=== PATIENT | female | born 1940 | race Caucasian/White ===

== ENCOUNTER → 2018-03-15 | Outpatient (CLI) | payer MEDICARE, MEDICAID ==
[~2018-03-15] MED LIST: BACTRIM-DS1 EA ORAL; BENICAR5 MG ORAL; BENTYL10 MG ORAL; TAMIFLU75 MG ORAL
--- NOTE | 2018-03-15 16:53 | Diagnostic Imaging Report ---
Indication: Abdominal pain. Persists. Technique: US ABD limited Comparison: 07/06/2010; CT abdomen 03/19/2016 Findings: Please note that patient requested limited evaluation as she could not tolerate the pressure of the probe. Imaged portions of the pancreatic head grossly unremarkable. The body and tail are not seen. Liver contour appears smooth. Hepatic echogenicity appears within normal limits and homogeneous. Imaged hepatic veins appear patent. Liver is normal in size. Partially visualized is grossly unremarkable. In the inferior right hepatic lobe there is a 1.8 x 2.2 x 2.1 cm well-circumscribed anechoic structure consistent with the cyst noted in this region on prior CT. No additional hepatic lesion is identified. Abdominal aorta is normal in caliber with some scattered atherosclerotic calcifications. IMPRESSION: Limited abdominal ultrasound as patient could not tolerate probe pressure. Only images of the liver, aorta and pancreatic head were obtained. * Simple appearing cyst in the inferior right hepatic lobe measuring up to 2.6 cm in diameter. This corresponds with the cyst noted in this region on prior CT. * Atherosclerotic disease noted in the aorta. Visualized portions of the abdominal aorta normal in caliber.
== END | disposition home or self-care (01) ==
LOC: ULS 09:29
PROVIDERS: ATTEND Internal Medicine
DX: K76.89 Other specified diseases of liver (principal); I70.0 Atherosclerosis of aorta
CPT/HCPCS: 76705

== ENCOUNTER 2018-10-01 17:42 | Emergency (ER) | payer MEDICARE, MEDICAID ==
[~2018-10-01] VITALS: Ht 157.5 cm; Wt 53.5 kg
[2018-10-01] MEDS ORDERED: NKM (17:50)
--- NOTE | 2018-10-01 17:59 | NUR ---
ED Nurse Note: Pt came into the ER w/ complaints of vaginal bleeding x 2 days. Denies any pain. A + O x4 Ambulatory. Skin warm to touch.
--- NOTE | 2018-10-01 18:11 | NUR ---
ED Nurse Note: Collected blood and urine. Pt does not want IV site. Pt states that she can be poked again if need be.
[2018-10-01 18:12] VITALS: BP 192/94
--- NOTE | 2018-10-01 18:15 | NUR ---
ED Nurse Note: Tried calling US. No response. Will try again later.
[2018-10-01 18:23] LABS: BASOPHILS % (AUTO) 0.9 % (0.0-2.0); EOSINOPHILS % (AUTO) 0.7 % (0.0-3.0); HEMATOCRIT 33.7 % (37.0-47.0); LYMPHOCYTES % (AUTO) 30.9 % (20.0-45.0); MEAN CORPUSCULAR VOLUME 87 FL (80-99); MONOCYTES % (AUTO) 10.5 % (1.0-10.0); NEUTROPHILS % (AUTO) 56.9 % (45.0-75.0); PLATELET COUNT 225 K/UL (150-450); RED BLOOD COUNT 3.89 M/UL (4.20-5.40); RED CELL DISTRIBUTION WIDTH 13.6 % (11.6-14.8); WHITE BLOOD COUNT 9.8 K/UL (4.8-10.8)
[2018-10-01 18:24] LABS: APPEARANCE,URINE CLEAR; BILIRUBIN, URINE NEGATIVE (NEGATIVE); COLOR,URINE PALE YELLOW; GLUCOSE, URINE (UA) NEGATIVE (NEGATIVE); KETONES,URINE NEGATIVE (NEGATIVE); LEUKOCYTE ESTERASE ,URINE 1+ (NEGATIVE); NITRITE,URINE NEGATIVE (NEGATIVE); PH,URINE 8 (4.5-8.0); PROTEIN,URINE NEGATIVE (NEGATIVE); UROBILINOGEN,URINE NORMAL MG/DL (0.0-1.0)
[2018-10-01 18:29] LABS: INR 0.9 (0.9-1.1)
[2018-10-01 18:34] LABS: ANION GAP 9 mmol/L (5-15); BLOOD UREA NITROGEN 13 mg/dL (7-18); CALCIUM 9.2 MG/DL (8.5-10.1); CARBON DIOXIDE 23 MMOL/L (21-32); CHLORIDE 100 MMOL/L (98-107); CREATININE 0.6 MG/DL (0.55-1.30); SODIUM 132 MMOL/L (136-145)
[2018-10-01 18:39] LABS: ALANINE AMINOTRANSFERASE 20 U/L (12-78); ALBUMIN 3.7 G/DL (3.4-5.0); ALKALINE PHOSPHATASE 113 U/L (46-116); ASPARTATE AMINO TRANSFERASE 16 U/L (15-37); BILIRUBIN,TOTAL 0.4 MG/DL (0.2-1.0)
--- NOTE | 2018-10-01 19:00 | NUR ---
HAND-OFF: Report given to SLAVA Kat.
--- NOTE | 2018-10-01 19:05 | NUR ---
ED Nurse Note: report received from gregoria israel. pt is in bed resting, vital signs stable, pt is not in distress denies pain. will await futher orders from satya
--- NOTE | 2018-10-01 19:10 | NUR ---
ED Nurse Note: CONTACTED US TO FOLLOWUP ON ORDER, UNABLE TO REACH US TECH.
[2018-10-01 19:18] VITALS: BP 145/80
--- NOTE | 2018-10-01 19:30 | NUR ---
ED Nurse Note: REATTEMPTED TO REACH US TECH, UNABLE TO CONTACT
--- NOTE | 2018-10-01 20:05 | NUR ---
ED Nurse Note: ATTEMPTED TO CALL US TECH FOR FOLLOW UP FOR PT PELVIC US, TECH IS UNREACHABLE
[2018-10-01 21:19] VITALS: BP 152/86
--- NOTE | 2018-10-01 22:09 | NUR ---
ED Nurse Note: US TECH AT BEDSIDE
--- NOTE | 2018-10-01 22:39 | Emergency Room Report ---
History of Present Illness General Chief Complaint: Female Urogenital Problems Source: Patient Present Illness HPI Patient is a 77-year-old female presented after increased vaginal bleeding. Patient reportedly had been seen by her SENIOR PENSIONS ADMINISTRATOR earlier in the day. She reports having worsening bleeding. She denies feeling dizzy or lightheaded. She reports having been postmenopausal. She denies any bloody stools. She is not currently taking any blood thinners. Allergies: Coded Allergies: PAROXETINE (Verified Allergy, Unknown, 03/19/16) Patient History Past Medical History: see triage record Reviewed Nursing Documentation: PMH: Agreed; PSxH: Agreed Nursing Documentation-PMH Past Medical History: No History, Except For Hx Cardiac Problems: No - s/p Tonsillectomy Hx Hypertension: Yes Hx Pacemaker: No Hx Asthma: No Hx COPD: No Hx Diabetes: No Hx Cancer: No Hx Gastrointestinal Problems: No - s/p Appendectomy Hx Dialysis: No Hx Neurological Problems: No Hx Cerebrovascular Accident: No Hx Seizures: No Review of Systems All Other Systems: negative except mentioned in HPI Physical Exam Vital Signs Date Time Temp Pulse Resp B/P (MAP) Pulse Ox O2 Delivery O2 Flow Rate FiO2 10/01/18 17:46 98.4 106 16 194/96 95 Room Air Sp02 EP Interpretation: reviewed, normal General Appearance: normal inspection, well appearing, no apparent distress, alert, GCS 15, non-toxic Head: atraumatic ENT: normal ENT inspection, hearing grossly normal, normal voice Neck: normal inspection, full range of motion, supple, no bony tend Respiratory: normal inspection, lungs clear, normal breath sounds, no respiratory distress, no retraction, no wheezing Cardiovascular #1: regular rate, rhythm, no edema Gastrointestinal: normal inspection, normal bowel sounds, non tender, soft, no guarding, no hernia Genitourinary: no CVA tenderness Musculoskeletal: normal inspection, back normal, normal range of motion Neurologic: normal inspection, alert, responsive, speech normal Psychiatric: normal inspection, judgement/insight normal, mood/affect normal Skin: normal inspection, normal color, no rash Medical Decision Making Diagnostic Impression: Primary Impression: Fibroid uterus ER Course Patient presented for vaginal bleeding. Differential diagnosis included wasn't limited to fibroid uterus, uterine cancer, menorrhagia, coagulopathy, among others. Because of complexity of patient's case laboratory testing and imaging studies were ordered. Laboratory testing was notable for minimal anemia. Patient states is normal for her. Patient was advised to follow-up with her primary care physician for reexamination and treatment. Labs Test 10/01/18 18:10 White Blood Count 9.8 K/UL (4.8-10.8) Red Blood Count 3.89 M/UL (4.20-5.40) Hemoglobin 11.0 G/DL (12.0-16.0) Hematocrit 33.7 % (37.0-47.0) Mean Corpuscular Volume 87 FL (80-99) Mean Corpuscular Hemoglobin 28.4 PG (27.0-31.0) Mean Corpuscular Hemoglobin Concent 32.8 G/DL (32.0-36.0) Red Cell Distribution Width 13.6 % (11.6-14.8) Platelet Count 225 K/UL (150-450) Mean Platelet Volume 7.7 FL (6.5-10.1) Neutrophils (%) (Auto) 56.9 % (45.0-75.0) Lymphocytes (%) (Auto) 30.9 % (20.0-45.0) Monocytes (%) (Auto) 10.5 % (1.0-10.0) Eosinophils (%) (Auto) 0.7 % (0.0-3.0) Basophils (%) (Auto) 0.9 % (0.0-2.0) Prothrombin Time 9.9 SEC (9.30-11.50) Prothromb Time International Ratio 0.9 (0.9-1.1) Activated Partial Thromboplast Time 29 SEC (23-33) Urine Color Pale yellow Urine Appearance Clear Urine pH 8 (4.5-8.0) Urine Specific Mcdonald 1.010 (1.005-1.035) Urine Protein Negative (NEGATIVE) Urine Glucose (UA) Negative (NEGATIVE) Urine Ketones Negative (NEGATIVE) Urine Blood 5+ (NEGATIVE) Urine Nitrite Negative (NEGATIVE) Urine Bilirubin Negative (NEGATIVE) Urine Urobilinogen Normal MG/DL (0.0-1.0) Urine Leukocyte Esterase 1+ (NEGATIVE) Urine RBC 2-4 /HPF (0 - 2) Urine WBC 0-2 /HPF (0 - 2) Urine Squamous Epithelial Cells Occasional /LPF Urine Bacteria None /HPF (NONE) Sodium Level 132 MMOL/L (136-145) Potassium Level 4.0 MMOL/L (3.5-5.1) Chloride Level 100 MMOL/L (98-107) Carbon Dioxide Level 23 MMOL/L (21-32) Anion Gap 9 mmol/L (5-15) Blood Urea Nitrogen 13 mg/dL (7-18) Creatinine 0.6 MG/DL (0.55-1.30) Estimat Glomerular Filtration Rate mL/min (>60) Glucose Level 107 MG/DL (74-106) Calcium Level 9.2 MG/DL (8.5-10.1) Total Bilirubin 0.4 MG/DL (0.2-1.0) Aspartate Amino Transf (AST/SGOT) 16 U/L (15-37) Alanine Aminotransferase (ALT/SGPT) 20 U/L (12-78) Alkaline Phosphatase 113 U/L (46-116) Total Protein 7.4 G/DL (6.4-8.2) Albumin 3.7 G/DL (3.4-5.0) Globulin 3.7 g/dL Albumin/Globulin Ratio 1.0 (1.0-2.7) Lipase 217 U/L (73-393) Last Vital Signs Date Time Temp Pulse Resp B/P (MAP) Pulse Ox O2 Delivery O2 Flow Rate FiO2 10/01/18 21:19 98.3 69 19 152/86 99 Room Air Status: improved Disposition: HOME, SELF-CARE Condition: Stable Referrals: NON PHYSICIAN (PCP) Patient Instructions: Uterine Fibroids Will Bourgeois MD Oct 01, 2018 22:39
[2018-10-01 22:55] VITALS: BP 166/85
--- NOTE | 2018-10-01 22:55 | NUR ---
ED Nurse Note: PT IS D/C PER ERMD ORDER. PT WAS GIVEN DISCHARGE INSTRUCTIONS PROVIDED. PT IS AOX4, AND WAS ABLE TO VERBALIZE UNDERSTANDING, ID BAND REMOVED PT VSS. ABLE TO AMBULATE WITH STEADY GAIT. PT TOOK ALL BELONGINGS WHEN LEAVING ED.
--- NOTE | 2018-10-01 22:56 | NUR ---
Note neftali in EDM - 10/01/18 at 2256 by BEAU ED Nurse NOTES: PT IS D/C PER ERMD ORDER. PT WAS GIVEN DISCHARGE INSTRUCTIONS PROVIDED. PT IS AOX4, AND WAS ABLE TO VERBALIZE UNDERSTANDING, ID BAND REMOVED . PT VSS. ABLE TO AMBULATE WITH STEADY GAIT. PT TOOK ALL BELONGINGS WHEN LEAVING ED.
--- NOTE | 2018-10-02 11:08 | Diagnostic Imaging Report ---
Indication:Lower abdominal and pelvic pain Technique: Grayscale and duplex Doppler imaging of the pelvis performed utilizing a transabdominal and endovaginal scan. Comparison: None Findings: Uterus measures 10 x 7 x 9 cm. Uterine echogenicity is normal. There is a fibroid in the lower uterine segment measuring approximately 4 to 5 cm. There is also a fibroid in the fundal region measuring 3 cm. Endometrium is not well seen. There is no free fluid. There is no adnexal mass identified. There is dopplerable blood flow within both ovaries which appear normal. A few follicles noted. IMPRESSION: No acute findings. Uterine fibroids
== END 2018-10-01 22:55 | disposition home or self-care (01) ==
LOC: EMR 19:55
DX: D25.9 Leiomyoma of uterus, unspecified (principal); I10 Essential (primary) hypertension; Z88.8 Allergy status to other drugs, medicaments and biological substances
CPT/HCPCS: 36415; 76856; 80053; 81003; 83690; 85025; 85610; 85730; 99284

== ENCOUNTER 2018-10-09 00:59 | Emergency (ER) | payer MEDICAID, MEDICARE ==
[~2018-10-09] VITALS: Ht 152.4 cm; Wt 54.4 kg
[~2018-10-09 00:59] MED LIST changes: +NKM
--- NOTE | 2018-10-09 01:03 | Emergency Room Report ---
History of Present Illness General Source: Patient, Medical Record, EMS Present Illness HPI Is a 78-year-old female who was here a few days ago. She presents with chief complaint of vaginal bleeding. She had blood work done and ultrasound which show she has a fibroid uterus. No other mass seen. She said she still having vaginal bleeding. No change from before. No syncope. No nausea no vomiting. Nothing made it better. Nothing made it worse. She scheduled to see her OB/ CIVIL GEOTECHNICAL ENGINEER on . This is only day and a half from now. When I asked the patient why she is here, she said because she still bleeding and she was to see the SHELLACKER sooner and to see if she can get another ultrasound. Explained to the patient that would not happen tonight. I told patient that ultrasound would not show anything new. She just had one less than a week ago. There is no emergent issue that require her to see SHELLACKER tonight. She was not happy with my explanation and ask the vp compliance to take her home. The vp compliance tell her that they do not take patient home. She said she will walk home since she is only live a couple blocks from here. She walked out without getting any triage. Allergies: Coded Allergies: PAROXETINE (Verified Allergy, Unknown, 03/19/16) Patient History Past Medical History: see triage record, old chart reviewed Past Surgical History: other Pertinent Family History: none Social History: Denies: smoking Now: No Immunizations: other Reviewed Nursing Documentation: PMH: Agreed; PSxH: Agreed Nursing Documentation-PMH Hx Cardiac Problems: No - s/p Tonsillectomy Hx Hypertension: Yes Hx Pacemaker: No Hx Asthma: No Hx COPD: No Hx Diabetes: No Hx Cancer: No Hx Gastrointestinal Problems: No - s/p Appendectomy Hx Dialysis: No Hx Neurological Problems: No Hx Cerebrovascular Accident: No Hx Seizures: No Review of Systems Eye: Denies: eye pain, blurred vision ENT: Denies: ear pain, nose congestion, throat swelling Respiratory: Denies: cough, shortness of breath Cardiovascular: Denies: chest pain, palpitations Gastrointestinal: Denies: abdominal pain, diarrhea, nausea, vomiting Genitourinary: Reports: vag bleed/dc Musculoskeletal: Denies: back pain, joint pain Skin: Denies: rash Neurological: Denies: headache, numbness Endocrine: Denies: increased thirst, increased urine Hematologic/Lymphatic: Denies: easy bruising All Other Systems: negative except mentioned in HPI Physical Exam General Appearance: normal inspection, well appearing, no apparent distress Eyes: bilateral eye PERRL ENT: hearing grossly normal, normal voice Neck: full range of motion Respiratory: no respiratory distress, no retraction Cardiovascular #1: other - No edema Gastrointestinal: non-distended Musculoskeletal: back normal Neurologic: alert, oriented x3 Psychiatric: anxious Medical Decision Making Diagnostic Impression: Primary Impression: Vaginal bleeding ER Course Patient presents with vaginal bleeding. This is chronic in nature. She had recent workup less than a week ago. I see no need for further workup. Explained this to this patient. She left prior to my complete physical exam. Status: improved Disposition: ELOPED Condition: Stable Jarrell Baker MD Oct 09, 2018 01:03
[2018-10-09] MEDS ORDERED: UNOBMED (01:04)
--- NOTE | 2018-10-09 01:07 | NUR ---
ED Nurse Note: Patient left without being seen. Patient left before being triaged.
== END 2018-10-09 01:15 | disposition left against medical advice (07) ==
LOC: EDBD 00:59 → EMR 01:10
DX: N93.9 Abnormal uterine and vaginal bleeding, unspecified (principal); I10 Essential (primary) hypertension; Z90.49 Acquired absence of other specified parts of digestive tract

== ENCOUNTER 2018-11-27 09:16 | Outpatient (CLI) | payer MEDICARE, MEDICAID ==
[~2018-11-27 09:16] MED LIST changes: +UNOBMED
--- NOTE | 2018-11-27 12:29 | Diagnostic Imaging Report ---
Indication:History of uterine fibroids. Patient had a recent endometrial biopsy which per patient was negative for cancer. Presents with vaginal bleeding and pain. Technique: Grayscale and duplex Doppler imaging of the pelvis performed utilizing a transabdominal and endovaginal scan. Comparison: None Findings: The uterus is retroverted. There is heterogeneous, avascular echogenic material and fluid within the endometrial canal presumably blood. The uterus measures 7.5 x 5 x 3.7 cm. The endometrium is poorly defined and not well established or visualized on this examination. The distinction between multiple uterine fibroids and the endometrial canal is difficult at best on this examination. The left ovary is not seen. The right ovary is normal in appearance measures 1.5 x 1.4 x 1.8 cm. IMPRESSION: Limited evaluation of the uterus. Marked heterogeneity of the uterus with a central area of what is likely endometrial hematoma measuring about 3 cm. Suggestion of uterine fibroids. Nonvisualization of left ovary
== END 2018-11-27 11:16 | disposition home or self-care (01) ==
LOC: ULS 09:16
DX: N93.8 Other specified abnormal uterine and vaginal bleeding (principal)
CPT/HCPCS: 76830; 76856